=== PATIENT | male | born 1995 | race Caucasian/White ===

== ENCOUNTER 2020-06-07 14:24 | Emergency (ER) | payer BC ==
[~2020-06-07] VITALS: Ht 180.3 cm; Wt 68.0 kg
[2020-06-07] MEDS ORDERED: ESCI10TA PO (14:49)
[2020-06-07] MEDS ORDERED: LISD20CA PO (14:49)
[2020-06-07] MEDS ORDERED: LIDOCAINE VISCUS 2% 15 ML UDC MM ONE (15:00)
[2020-06-07] MEDS ORDERED: MAG HYDROX/AL HYDROX/SIMETH 30 ML LIQUID UDC PO ONE (15:00)
[2020-06-07] MEDS ORDERED: IV NORMAL SALINE 1000 ML BAG IV ONE (15:00)
[2020-06-07] MEDS ORDERED: hydrOXYzine HCL 10 MG TABLET PO ONE (15:00)
[2020-06-07] MEDS ORDERED: hydrOXYzine HCL 10 MG TABLET ONE (15:05)
[2020-06-07] MEDS ORDERED: MAG HYDROX/AL HYDROX/SIMETH 30 ML LIQUID UDC ONE (15:06)
[2020-06-07] MEDS ORDERED: LIDOCAINE VISCUS 2% 15 ML UDC ONE (15:06)
--- NOTE | 2020-06-07 15:25 | NUR ---
PT IS IN ROOM #2A. DR RIVAS EVALUATED THE PT.
[2020-06-07 15:28] LABS: BASOPHILS % (AUTO) 0.3 % (0.0-2.0); EOSINOPHILS % (AUTO) 0.1 % (0.0-7.0); HEMATOCRIT 39.6 % (36.7-47.1); HEMOGLOBIN 13.8 g/dL (12.5-16.3); LYMPHOCYTES # (AUTO) 0.7 K/uL (20.0-40.0); LYMPHOCYTES % (AUTO) 13.4 % (20.5-51.5); MEAN CORPUSCULAR HEMOGLOBIN 32.1 uug (23.8-33.4); MEAN CORPUSCULAR HGB CONC 35 g/dL (32.5-36.3); MEAN CORPUSCULAR VOLUME 92.4 fL (73.0-96.2); MONOCYTES # (AUTO) 0.4 K/uL (2.0-10.0); MONOCYTES % (AUTO) 7.7 % (0.0-11.0); NEUTROPHILS # (AUTO) 3.9 K/uL (1.8-8.9); NEUTROPHILS % (AUTO) 78.5 % (38.5-71.5); PLATELET COUNT (AUTO) 147 K/uL (152-348); RED BLOOD CELL COUNT(AUTO) 4.29 MIL/uL (4.06-5.63); WHITE BLOOD COUNT (AUTO) 4.9 K/uL (3.6-10.2)
[2020-06-07 15:42] LABS: BILIRUBIN,DIRECT 0.2 mg/dL (0.0-0.2); BILIRUBIN,TOTAL 0.7 mg/dL (0.2-1.0); CREATININE 1.1 mg/dL (0.6-1.3); POTASSIUM 3.5 mmol/L (3.5-5.1); TOTAL PROTEIN, SERUM 6.8 g/dL (6.4-8.2)
[2020-06-07 16:11] LABS: *AMPHETAMINE, URINE NEGATIVE (NEGATIVE); *CANNABINOID, URINE POSITIVE (NEGATIVE); *COCCAINE, URINE NEGATIVE (NEGATIVE); *OPIATE, URINE NEGATIVE (NEGATIVE); *PHENCYCLIDINE SCREEN,URINE NEGATIVE (NEGATIVE)
--- NOTE | 2020-06-07 16:58 | NUR ---
PT WAS D/C'd TO HOME AFTER ER MD RE EVALUATION. D/C INSTRUCTIONS GIVEN TO THE PT BY DR RIVAS.
[2020-06-07 17:00] VITALS: BP 132/82
== END 2020-06-07 17:21 | disposition home or self-care (01) ==
LOC: ER 14:33
DX: F41.0 Panic disorder [episodic paroxysmal anxiety] (principal); F10.20 Alcohol dependence, uncomplicated; F19.90 Other psychoactive substance use, unspecified, uncomplicated; D69.6 Thrombocytopenia, unspecified; R79.89 Other specified abnormal findings of blood chemistry; R03.0 Elevated blood-pressure reading, without diagnosis of hypertension; R94.31 Abnormal electrocardiogram [ECG] [EKG]
CPT/HCPCS: 36415; 71045; 83690; 85025; 93005; A4663